=== PATIENT | female | born 1995 | race Caucasian/White ===

== ENCOUNTER 2017-03-25 15:44 | Emergency (ER) | payer OTHER ==
[~2017-03-25] VITALS: Ht 157.5 cm; Wt 78.0 kg
[~2017-03-25 15:44] MED LIST: IBUP-1542 PO; IBUP-725 PO; NAPR-260 PO
[2017-03-25 15:52] VITALS: Ht 157.5 cm; Wt 78.0 kg
--- NOTE | 2017-03-25 17:36 | RADRPT ---
PROCEDURE: US Pelvis CLINICAL INDICATION: Pelvic pain. TECHNIQUE: Transabdominal and transvaginal sonographic evaluation of the pelvis was performed. COMPARISON: None. FINDINGS: Myometrium is homogeneous in echotexture without fibroids. Endometrium is normal in thickness without a focal abnormality. Normal flow to both ovaries. No adnexal mass. There are multiple small subcentimeter follicles hemal ntified in the bilateral ovaries. Small free pelvic fluid. MEASUREMENTS: Uterus: 10.2 x 4.9 x 5.1 cm, retroverted. Endometrium: 1.4 cm. Right ovary size: 4.7 x 2.6 x 3.6 cm Left ovary size: 3.5 x 3.0 x 3.3 cm IMPRESSION: Increased ovarian stroma and multiple peripherally arranged follicles identified in the bilateral ov subhash; findings meet sonographic criteria for polycystic ovaries. In the absence of ovulatory dysfu nction or biochemically diagnosed hyperandrogenism, findings are nonspecific and do not indicate the presence of polycystic ovarian syndrome Thickening of the endometrial stripe and small physiologic free fluid in the cul-de-sac, compatible with the luteal phase RPTAT: EE .Reinaldo Ferrari MD, MD Date Time Electronically viewed and signed by .Reinaldo Ferrari MD, on 03/25/2017 17:40 .C/
[2017-03-25 17:37] LABS: ADD UMIC YES; UR ASCORBIC ACID 20 mg/dL (NEGATIVE); UR BILIRUBIN (Dip) NEGATIVE (NEGATIVE); UR BLOOD (Dip) 3+ mg/dL (NEGATIVE); UR CLARITY SLIGHTLY CLOUDY (CLEAR); UR COLOR YELLOW (YELLOW); UR GLUCOSE (Dip) NEGATIVE (NEGATIVE); UR KETONES (Dip) NEGATIVE (NEGATIVE); UR LEUKOCYTE ESTERASE (Dip) TRACE Leu/ul (NEGATIVE); UR NITRITE (Dip) NEGATIVE (NEGATIVE); UR RBC > 182 /HPF (0-5); UR SPECIFIC GRAVITY (Dip) 1.018 (1.003-1.030); UR TOTAL PROTEIN (Dip) 1+ mg/dl (NEGATIVE); UR UROBILINOGEN (Dip) NEGATIVE (NEGATIVE)
[2017-03-25] MEDS ORDERED: ACET325T33 PO (17:40)
--- NOTE | 2017-03-25 17:54 | ERD ---
ER Documentation Chief Complaint Date/Time DATE: 03/25/17 TIME: 17:43 Chief Complaint AP HPI This is a 22-year-old female presenting to the emergency department complaining of on and off pelvic pain for the past 4 days. Patient states the pain comes and goes currently she denies any pain however when it does, she rates it moderate in severity. Patient states that on Sunday she went to the clinic in which they have done STD checking and she had bacterial vaginosis and they placed her on Flagyl. Patient said that she has 4 days left. She denies any vaginal discharge. Patient states that she has been bleeding for more than a month and she was going to be placed on a control however she is not started taking it yet because they agreed to wait until she is finishing her antibiotic. Patient has not had sex in over a month. Patient denies any flank pain, fevers, dysuria. She states her last bowel movement was at 2 PM and normal. ROS All systems reviewed and are negative except as per history of present illness. Medications Home Meds Active Scripts Acetaminophen* (Tylenol*) 325 Mg Tablet, 2 TAB PO Q6 Y for PAIN AND OR ELEVATED TEMP, #20 TAB Prov:ZARI CHANDLER PA-C 03/25/17 Ibuprofen* (Motrin*) 600 Mg Tab, 600 MG PO Q6, #30 TAB Prov:CIRILO SERRANO 06/16/16 Naproxen* (Naprosyn*) 500 Mg Tablet, 500 MG PO BID Y for PAIN AND/OR INFLAMMATION, #30 TAB Prov:ROSE DENG PA-C 04/14/16 Reported Medications Ibuprofen (Motrin) 400 Mg Tablet, 400 MG PO DAILY 12/15/11 Allergies Allergies: Coded Allergies: No Known Allergy (Unverified , 03/25/17) PMhx/Soc History of Surgery: No Anesthesia Reaction: No Hx Neurological Disorder: No Hx Respiratory Disorders: No Hx Cardiac Disorders: No Hx Psychiatric Problems: No Hx Miscellaneous Medical Probl: No (DENIES MEDICAL AND SURGICAL HX.) Hx Alcohol Use: No Hx Substance Use: No Hx Tobacco Use: No Smoking Status: Never smoker Physical Exam Vitals Vital Signs Date Time Temp Pulse Resp B/P Pulse Ox O2 Delivery O2 Flow Rate FiO2 03/25/17 15:52 98.1 78 18 134/78 99 Physical Exam GENERAL: well-developed/well-nourished, in no apparent distress, non-toxic appearing HENT: NC/AT, moist mucous membranes EYES: Conjunctiva normal NECK: Supple, no lymphadenopathy PULM: CTA bilaterally, no rales, rhonchi, or wheezing heard CV: Normal S1S2, RRR, good capillary refill GI: Soft, non-distended, non-tender to palpation Normal bowel sounds, no masses or organomegaly felt on exam No gross peritonitis, no bruits Negative Rovsing, negative Martin, negative McBurney's point, Negative CVAT BACK: No masses EXT: No clubbing, cyanosis, or edema NEURO: Alert and Orientated SKIN: Intact, normal turgor PSYCH: Normal mood and mentation Results 24 hrs Laboratory Tests Test 03/25/17 17:10 Urine Color YELLOW Urine Clarity SLIGHTLY CLOUDY Urine pH 6.0 Urine Specific Garber 1.018 Urine Ketones NEGATIVEmg/dL Urine Nitrite NEGATIVEmg/dL Urine Bilirubin NEGATIVEmg/dL Urine Urobilinogen NEGATIVEmg/dL Urine Leukocyte Esterase TRACELeu/ul Urine Microscopic RBC > 182/HPF Urine Microscopic WBC 9/HPF Urine Hemoglobin 3+mg/dL Urine Glucose NEGATIVEmg/dL Urine Total Protein 1+mg/dl Procedures/MDM This is a 22-year-old female presenting to the emergency department complaining of intermittent pelvic pain for the past 4 days. This is differentials include but not limited to polycystic ovaries, bacterial vaginosis, trichomoniasis. There was no evidence of ovarian torsion, ruptured ovarian cyst, or urinary tract infection at this time. No evidence of PID. Patient appears well , she was nontender to palpation on examination. Urinalysis was unremarkable for infection. Urine test is negative. Patient has been evaluated at a different clinic a few days ago and had the STD testing which was unremarkable. She was placed on Flagyl for bacterial vaginosis and still has not finished her antibiotic course. A pelvic ultrasound was done in the ED and it showed evidence of polycystic ovaries. I discussed with her to continue her antibiotic course. I have given her position for Tylenol for the pain when in the endoscopy I discussed with her to follow-up with her primary care physician. Discussed return to the ER for any worsening symptoms. She understands and agrees to this plan. Departure Diagnosis: Primary Impression: Polycystic ovaries Additional Impression: Pelvic pain Condition: Stable Patient Instructions: What Is Polycystic Ovary Syndrome?, When Your Teenager Has Polycystic Ovary Syndrome (PCOS), Dysmenorrhea, Pelvic Pain, Unknown Cause Additional Instructions: FOLLOW UP WITH YOUR PRIMARY CARE PHYSICIAN TOMORROW.Return to this facility if you are not improving as expected. Take all medicines as directed. Return to this facility if you are not improving as expected. ZARI CHANDLER PA-C Mar 25, 2017 17:54
== END 2017-03-25 18:00 | disposition home or self-care (01) ==
LOC: FTE 15:44
DX: E28.2 Polycystic ovarian syndrome (principal)
CPT/HCPCS: 76830; 76856; 81001; Z7502